=== PATIENT | female | born 1990 | race Caucasian/White ===

== ENCOUNTER 2017-02-16 21:21 | Emergency (ER) | payer OTHER ==
[~2017-02-16 21:21] MED LIST: BUSPIRONE HCL15 MG PO; DIOVAN80 MG PO; KEPPRA1000 M1 PO; LATUDA40 M1 PO; LEVOTHYROXIN0.075 M2 PO; LORATADINE10 MG PO; METOPROLOL SUCC50 M2 PO; PRILOSEC20 MG PO; QUETIAPINE FUM300 MG PO; TRAZODONE HCL100 MG PO; VITAMIN D32000 I2 PO
[2017-02-17 00:39] LABS: UA SPECIFIC GRAVITY 1.025 (1.005-1.035); microscopic required? YES; urine erythrocyte 3+ (NEGATIVE)
[2017-02-17 01:55] VITALS: BP 132/74
== END 2017-02-17 01:55 | disposition home or self-care (01) ==
LOC: ED 21:21
PROVIDERS: Emergency Medicine
DX: N13.2 Hydronephrosis with renal and ureteral calculous obstruction (principal); G80.9 Cerebral palsy, unspecified; E66.01 Morbid (severe) obesity due to excess calories; G40.909 Epilepsy, unspecified, not intractable, without status epilepticus
CPT/HCPCS: 83880; J1885; J2405

== ENCOUNTER 2017-02-28 13:36 | Emergency (ER) | payer OTHER ==
[2017-02-28 13:47] VITALS: BP 151/86
[2017-02-28 15:13] LABS: BASOPHIL % 0.1 % (0-2); PLATELET COUNT 196 x10^3mcL (130-400)
[2017-02-28 15:15] LABS: RED CELL DISTRIBUTION WIDTH 15.8 % (11.5-14.5)
[2017-02-28 15:19] LABS: CALCIUM 8.5 mg/dL (8.5-10.1); CARBON DIOXIDE 26.4 mmol/L (21-32); CHLORIDE SERUM 108 mmol/L (98-107); CREATININE SERUM 0.9 mg/dL (0.6-1.0); GFR1 > 60 mL/min; GLUCOSE SERUM 83 mg/dL (74-106); POTASSIUM SERUM 4.1 mmol/L (3.5-5.1); SODIUM SERUM 142 mmol/L (136-145)
[2017-02-28 15:24] LABS: ALBUMIN 3.5 g/dL (3.4-5.0); ALKALINE PHOSPHATASE 65 U/L (46-116); ALT/SGPT 17 U/L (14-59); AMYLASE 35 U/L (25-115); AST/SGOT 12 U/L (15-37); BILIRUBIN TOTAL 0.15 mg/dL (0.20-1.00); LIPASE 132 IU/L (73-393); TOTAL PROTEIN, SERUM 6.3 g/dL (6.4-8.2)
== END 2017-02-28 16:16 | disposition home or self-care (01) ==
LOC: ED 13:36
PROVIDERS: Emergency Medicine
DX: N20.0 Calculus of kidney (principal)
CPT/HCPCS: 83880; J1885